=== PATIENT | female | born 1985 | race African-American/Black ===

== ENCOUNTER 2020-07-12 07:35 | Emergency (ER) | payer BC ==
[2020-07-12] MEDS ORDERED: Acetaminophen 500 MG TAB ONE (08:17)
[2020-07-12 08:23] LABS: Bilirubin Negative (Negative); Blood, Urine Negative (Negative); Clarity Clear (Clear); Glucose, Urine (Dipstick) Negative (Negative); Ketone, Urine Negative (Negative); Leukocyte Negative (Negative); Nitrite Negative (Negative); Protein, Urine (Dipstick) Negative (Neg-Trace); Urobilinogen 0.2 mg/dL (Less than 2); pH, Urine 6.5 (5.0-9.0)
[2020-07-12 08:27] LABS: Pregnancy Test - Urine (BHCG) Negative (Negative); Pregu Control Background? CLEAR/WHITE (CLR/WHITE); Pregu Control Bar Appear? YES (CONTROL BAR)
[2020-07-12] MEDS ORDERED: Cyclobenzaprine 10 MG TAB ONE (08:40)
[2020-07-12] MEDS ORDERED: Ketorolac Tromethamine 60 MG/2 ML VIAL ONE (08:40)
== END 2020-07-12 08:45 | disposition home or self-care (01) ==
LOC: NAV ERS 07:35
DX: M62.830 Muscle spasm of back (principal); F41.9 Anxiety disorder, unspecified; X50.0XXA Overexertion from strenuous movement or load, initial encounter; Y99.0 Civilian activity done for income or pay
CPT/HCPCS: 81003; 81025; 96372; 99283; J1885

== ENCOUNTER 2022-09-26 04:38 | Emergency (ER) | payer BC, OTHER ==
[2022-09-26 05:05] LABS: #Basophils 0.1 thou/uL (0.0-0.2); #Eosinphils 0.2 thou/uL (0.0-0.7); #Lymphocytes 1.3 thou/uL (1.20-3.40); #Monocytes 0.5 thou/uL (0.11-0.59); #Neutrophils 2.6 thou/uL (1.40-6.50); %Basophils 1.2 % (0.0-1.0); %Eosinophils 4.7 % (0.0-10.0); %Lymphocytes 27.3 % (21.0-51.0); %Monocytes 11.2 % (0.0-10.0); %Neutrophils 55.7 % (42.0-75.0); Hemoglobin 12.7 g/dL (12.0-16.0); Mean Corpuscular HGB CONC 32.9 g/dL (32.0-36.0); Mean Corpuscular Hemoglobin 29.5 pg (27.0-31.0); Mean Corpuscular Volume 89.5 fl (78.0-98.0); Mean Platelet Volume 9.3 fL (7.4-10.4); Platelet Count 196 10x3/uL (130-400); RBC Distribution Width 12.1 % (11.5-14.5); Red Blood Cell (RBC) Count 4.31 mill/uL (4.20-5.40); White Blood Cell (WBC) Count 4.7 10x3/uL (4.8-10.8)
[2022-09-26 05:23] LABS: ALT (SGPT) 18 U/L (8-55); AST (SGOT) 20 U/L (5-34); Albumin 3.7 g/dL (3.5-5.0); Alkaline Phosphatase 128 U/L (40-110); Anion Gap 15 mmol/L (10-20); BUN (Urea Nitrogen) 14 mg/dL (7.0-18.7); Bilirubin, Total 0.5 mg/dL (0.2-1.2); Calc. Creatinine Clearance 0 mL/min (70-130); Calcium 8.4 mg/dL (7.8-10.44); Carbon Dioxide 17 mmol/L (22-29); Chloride 110 mmol/L (98-107); Estimated GFR 101; Glucose 104 mg/dL (70-105); Potassium 4.8 mmol/L (3.5-5.1); Protein, Total 6.7 g/dL (6.0-8.3); Sodium 137 mmol/L (136-145)
[2022-09-26] MEDS ORDERED: Ketorolac Tromethamine 30 MG/ML VIAL ONE (05:29)
[2022-09-26] MEDS ORDERED: Dexamethasone 4 MG TAB ONE (05:29)
[2022-09-26] MEDS ORDERED: Acetaminophen 500 MG TAB ONE (05:29)
[2022-09-26] MEDS ORDERED: Morphine 4 MG/ML VIAL ONE (06:36)
[2022-09-26] MEDS ORDERED: Ondansetron PF 4 MG/2 ML Vial ONE (06:36)
[2022-09-26] MEDS ORDERED: Iopamidol 370 76% 100 ML VIAL ONE (09:00)
== END 2022-09-26 08:00 | disposition home or self-care (01) ==
LOC: NAV ERS 04:38
DX: R07.89 Other chest pain (principal)
CPT/HCPCS: 71045; 71275; 80053; 83735; 84484; 85025; 85379; 85652; 86140; 93005; 96374; 96375; J1885; J2270; J2405; J8540; Q9967

== ENCOUNTER 2024-01-17 13:58 | Emergency (ER) | payer BC ==
[2024-01-17 15:26] LABS: #Basophils 0.1 thou/uL (0.0-0.2); #Eosinphils 0.3 thou/uL (0.0-0.7); #Lymphocytes 1.5 thou/uL (1.20-3.40); #Monocytes 0.4 thou/uL (0.11-0.59); %Basophils 1.6 % (0.0-1.0); %Eosinophils 5.8 % (0.0-10.0); %Lymphocytes 27.3 % (21.0-51.0); %Monocytes 8.3 % (0.0-10.0); Hematocrit 44.1 % (36.0-47.0); Hemoglobin 13.2 g/dL (12.0-16.0); Mean Corpuscular HGB CONC 29.9 g/dL (32.0-36.0); Mean Corpuscular Hemoglobin 26.6 pg (27.0-31.0); Mean Corpuscular Volume 89.2 fl (78.0-98.0); Mean Platelet Volume 8.9 fL (7.4-10.4); Platelet Count 231 10x3/uL (130-400); RBC Distribution Width 12.5 % (11.5-14.5); Red Blood Cell (RBC) Count 4.94 mill/uL (4.20-5.40); White Blood Cell (WBC) Count 5.3 10x3/uL (4.8-10.8)
[2024-01-17 15:30] LABS: ALT (SGPT) 14 U/L (8-55); AST (SGOT) 13 U/L (5-34); Alkaline Phosphatase 130 U/L (40-110); Anion Gap 14 mmol/L (10-20); BUN (Urea Nitrogen) 13 mg/dL (7.0-18.7); Bilirubin, Total 0.5 mg/dL (0.2-1.2); Calc. Creatinine Clearance 0 mL/min (70-130); Calcium 9.3 mg/dL (7.8-10.44); Carbon Dioxide 19 mmol/L (22-29); Chloride 108 mmol/L (98-107); Estimated GFR 94; Globulin 3.5 g/dL (2.4-3.5); Glucose 115 mg/dL (70-105); Magnesium 1.7 mg/dL (1.6-2.6); Potassium 3.6 mmol/L (3.5-5.1); Protein, Total 7.5 g/dL (6.0-8.3); Sodium 137 mmol/L (136-145)
[2024-01-17 15:32] LABS: Troponin I Less than 0.010 ng/mL (< 0.028)
[2024-01-17] MEDS ORDERED: Lactated Ringer's 1,000 ML ONE (16:21)
== END 2024-01-17 17:05 | disposition home or self-care (01) ==
LOC: NAV ERS 13:58
DX: E86.0 Dehydration (principal)
CPT/HCPCS: 80053; 83735; 84443; 84484; 85025; 93005; 96360; J7120